=== PATIENT | male | born 1945 | race Hispanic/Latino ===

== ENCOUNTER 2018-01-13 15:39 | Inpatient (IN) | payer MEDICAID, SELFPAY ==
--- NOTE | 2018-01-13 16:19 | RAD ---
RADIOGRAPH CHEST 1 VIEW: Date: 01/13/18 Time: 3:55 p.m. HISTORY: 72-year-old male with chest pain. COMPARISON: None available. FINDINGS: There is hyperinflation consistent with COPD. There are diffuse, mild nodular interstitial densities, left greater than right. No consolidation or cardiomegaly. No effacement of lateral costophrenic ang les or pneumothorax. IMPRESSION: 1. Emphysema. 2. Nonspecific diffuse nodular interstitial densities. NAE [] POS: [facility]
[2018-01-13 16:25] LABS: #Eosinphils 0.2 thou/uL (0.0-0.7); #Lymphocytes 1.4 thou/uL (1.20-3.40); #Monocytes 0.3 thou/uL (0.11-0.59); #Neutrophils 6.8 thou/uL (1.40-6.50); %Eosinophils 2.7 % (0.0-10.0); %Lymphocytes 16.1 % (21.0-51.0); %Monocytes 3.6 % (0.0-10.0); %Neutrophils 77.7 % (42.0-75.0); Hemoglobin 8.1 g/dL (14.0-18.0); Mean Corpuscular HGB CONC 31.2 g/dL (32.0-36.0); Mean Corpuscular Volume 89.8 fL (78.0-98.0); Mean Platelet Volume 7.5 fL (7.4-10.4); Platelet Count 234 thou/uL (130-400); RBC Distribution Width 13.5 % (11.5-14.5); Red Blood Cell (RBC) Count 2.88 mill/uL (4.70-6.10); White Blood Cell (WBC) Count 8.8 thou/uL (4.8-10.8)
[2018-01-13] MEDS ORDERED: Morphine 2 MG/ML SYRINGE ONE (16:43)
[2018-01-13 16:44] LABS: ALT (SGPT) Less than 7 U/L (8-55); AST (SGOT) 12 U/L (5-34); Albumin 2.7 g/dL (3.4-4.8); Alkaline Phosphatase 82 U/L (40-150); Anion Gap 11 mmol/L (10-20); BUN (Urea Nitrogen) 45 mg/dL (8.4-25.7); Bilirubin, Total 0.2 mg/dL (0.2-1.2); Calc. Creatinine Clearance 0 mL/min (70-130); Calcium 8.3 mg/dL (7.8-10.44); Carbon Dioxide 15 mmol/L (23-31); Chloride 116 mmol/L (98-107); Estimated GFR-MDRD 25; Globulin 3.8 g/dL (2.4-3.5); Glucose 94 mg/dL (83-110); Magnesium 1.7 mg/dL (1.6-2.6); Potassium 5.3 mmol/L (3.5-5.1); Protein, Total 6.5 g/dL (5.8-8.1); Sodium 137 mmol/L (136-145)
[2018-01-13 16:49] LABS: Troponin I Less than 0.010 ng/mL (< 0.028)
[2018-01-13 17:05] LABS: Bilirubin Negative (Negative); Blood, Urine Large (Negative); Clarity CLEAR (Clear); Glucose, Urine (Dipstick) Negative (Negative); Leukocyte Negative (Negative); Nitrite Negative (Negative); Protein, Urine (Dipstick) 30 mg/dL (Neg-Trace); Specific Gravity, Urine 1.008 (1.002-1.036); Urobilinogen 0.2 mg/dL (0.2-1.0); pH, Urine 5.5 (5.0-9.0)
[2018-01-13 17:08] LABS: Bacteria/HPF None Seen HPF (None Seen); Hyaline Casts/LPF 0-3 HYALINE CAST LPF (0-3 Hyaline); RBC/HPF GREATER THAN 50-TNTC HPF (0-3); Squamous Epithelial None Seen HPF (0-3); WBC/HPF 0-3 HPF (0-3)
--- NOTE | 2018-01-13 20:14 | PDOC.FPRHP ---
- History of Present Illness Chief Complaint: LE swelling History of Present Illness: Mr. Pike came in to clinic 3 days ago with the complaint of one week of bilateral LE swelling, he reported intermittent chest pain, recent weight loss. Denied shortness of breath, palpitations, orthopnea, weakness or syncopal episodes. He presents to the ED tonight after an increase in duration of a chest pain episode, and reports from our clinic of abnormal lab values. He is a recent who move from [place] 1 week ago to be closer to family. All medical history reported is vague d/t pt/family understanding and language barrier. ED Course: UA, CXR, CKMB/trop, BNP, Mag, CMP/CBC, - Allergies/Adverse Reactions Allergies Allergy/AdvReac Type Severity Reaction Status Date / Time No Known Drug Allergies Allergy Verified 01/13/18 21:45 - Home Medications Medication Instructions Recorded Confirmed Type Diclofenac Sodium [Diclofenac 100 mg PO DAILY 01/13/18 01/13/18 History Sodium ER] Folic Acid 5 mg PO DAILY 01/13/18 01/13/18 History predniSONE [Prednisone] 5 mg PO DAILY 01/13/18 01/13/18 History - History PMHx:possible hx of CKD, DMII, OA, BPH PSHx: prostate surgery FHx: unknown Social: current smoker - Review of Systems General: reports: weight/appetite/sleep changes (recent weight loss), fatigue Eyes: denies: eye pain, vision changes ENT: denies: nasal congestion, rhinorrhea Respiratory: reports: cough, shortness of breath Cardiovascular: reports: chest pain, palpitation, edema. denies: paroxysmal nocturnal dyspnea, orthopnea Gastrointestinal: denies: nausea, vomiting, diarrhea Genitourinary: reports: polyuria. denies: incontinence Skin: denies: rashes, lesions Musculoskeletal: reports: pain. denies: stiffness, swelling Neurological: denies: numbness, syncope, weakness Psychological: reports: depression - Vital signs BP: [135/78] HR: [71] RR: [20] Tmax: [98.4] Pox: [100]% on [RA] Wt: [53.5kg] - Physical Exam Constitutional: NAD, other (somnolent) HEENT: normocephalic and atraumatic, grossly normal vision, grossly normal hearing, MMM Neck: supple, trachea midline, no bruits Chest: no-tender to palpation, no lesions Heart: RRR, normal S1/S2, pulses present, other (b/l LE edema extending to malleoli, S3 gallop) Lungs: CTAB, no wheezing Abdomen: soft, non-tender Musculoskeletal: normal structure, normal tone Neurological: no focal deficit Skin: no rash/lesions Heme/Lymphatic: no unusual bruising or bleeding, no petechia Psychiatric: normal mood and affect FMR H&P: Results - Labs Result Diagrams: 01/14/18 03:46 01/14/18 03:46 Lab results: WBC 8.8 thou/uL (4.8-10.8) 01/13/18 16:09 Hgb 8.1 g/dL (14.0-18.0) L 01/13/18 16:09 Hct 25.9 % (42.0-52.0) L 01/13/18 16:09 MCV 89.8 fL (78.0-98.0) 01/13/18 16:09 Plt Count 234 thou/uL (130-400) 01/13/18 16:09 Neutrophils % 77.7 % (42.0-75.0) H 01/13/18 16:09 Sodium 137 mmol/L (136-145) 01/13/18 16:09 Potassium 5.3 mmol/L (3.5-5.1) H 01/13/18 16:09 Chloride 116 mmol/L (98-107) H 01/13/18 16:09 Carbon Dioxide 15 mmol/L (23-31) L 01/13/18 16:09 BUN 45 mg/dL (8.4-25.7) H 01/13/18 16:09 Creatinine 2.56 mg/dL (0.6-1.3) H 01/13/18 16:09 Glucose 94 mg/dL (83-110) 01/13/18 16:09 Calcium 8.3 mg/dL (7.8-10.44) 01/13/18 16:09 Total Bilirubin 0.2 mg/dL (0.2-1.2) 01/13/18 16:09 AST 12 U/L (5-34) 01/13/18 16:09 ALT Less than 7 U/L (8-55) L 01/13/18 16:09 Alkaline Phosphatase 82 U/L (40-150) 01/13/18 16:09 CK-MB (CK-2) 1.0 ng/mL (0-6.6) 01/13/18 16:09 B-Natriuretic Peptide 368.9 pg/mL (0-100) H 01/13/18 16:09 Serum Total Protein 6.5 g/dL (5.8-8.1) 01/13/18 16:09 Albumin 2.7 g/dL (3.4-4.8) L 01/13/18 16:09 Urine Ketones Negative mg/dL (Negative) 01/13/18 16:57 Urine Blood Large (Negative) H 01/13/18 16:57 Urine Nitrite Negative (Negative) 01/13/18 16:57 Ur Leukocyte Esterase Negative (Negative) 01/13/18 16:57 Urine RBC GREATER THAN 50-TNTC HPF (0-3) H 01/13/18 16:57 Urine WBC 0-3 HPF (0-3) 01/13/18 16:57 Ur Squamous Epith Cells None Seen HPF (0-3) 01/13/18 16:57 Urine Bacteria None Seen HPF (None Seen) 01/13/18 16:57 FMR H&P: A/P - Problem List (1) Elevated brain natriuretic peptide (BNP) level Current Visit: Yes Status: Acute Code(s): R79.89 - OTHER SPECIFIED ABNORMAL FINDINGS OF BLOOD CHEMISTRY (2) Hematuria Current Visit: Yes Status: Acute Code(s): R31.9 - HEMATURIA, UNSPECIFIED (3) Kidney disease Current Visit: Yes Status: Acute Code(s): N28.9 - DISORDER OF KIDNEY AND URETER, UNSPECIFIED (4) Hyperkalemia Current Visit: Yes Status: Acute Code(s): E87.5 - HYPERKALEMIA (5) Anemia Current Visit: Yes Status: Acute Code(s): D64.9 - ANEMIA, UNSPECIFIED (6) Tobacco abuse Current Visit: Yes Status: Acute Code(s): Z72.0 - TOBACCO USE - Plan 1. Elevated BNP - over 1700 reported by lab, 368 in ED. Suspect CHF - TTE in AM - cardiology consulted from ED, consult HF team pending results - strict I&Os - caution IVF at this time - daily ASA 2. Kidney disease - Chronic vs acute, unknown cause - obtain FENa - nephrology consulted in ED - renal US 3. Hematuria - kidney vs prostate source - evaluate kidney disease - cytology 4. Hyperkalemia - 5.3 in ED - Kayexalate given - repeat CMP in AM 5. Anemia - most likely 2/2 CKD - obtain RBC smear 6. Tobacco abuse - COPD as possible cause for cough/SOB - Emphesyma per CXR Disposition/LOS: evaluate for CHF and CKD, monitor on telemetry. FMR H&P: Upper Level - Pertinent history 72M patient seen 3 days prior with complaint of leg swelling. Was noted to have elevated BNP. He presents to ED today due to gross abnormalities seen on clinic lab, primarily increased BNP, but also kidney injuries and hyperkalemia.=. Here , he endorses having episodes of chest pain, though none at this time. - Pertinent findings Gen: Alert, oriented, uses family for translation ResP: Appear CTA bilaterally CV: No obvious m/g/r. RRR GI: Normoactive, no distension. Ext: Trace pitting edema in LE - Plan Date/Time: 01/13/182010 I, [Franco Rehman], have evaluated this patient and agree with findings/plan as outlined by safety intern resident. Pertinent changes/additions are listed here. 1. Suspected CHF - Elevated BNP with occasional episode of SOB - TTE echo order. Cardiology consulted by ED. Strict I/O. 2. CKD vs TOYIN - Nephrology consulted from ED - Obtain FENA as patient has hx of possible obstructive disease and poor hydration 3. Hematuria - - Has hx of prostate surgery, unclear if malignancy found - Will likely need repeat UA to in futuer 4. Hyperkalemia - 5.3 in ED, recheck in morning - Kayexalate given 5. Normocytic Anemia - Consider iron studies, folate, B12 6. Tobacco abuse - Advise cessation Attending Addendum - Attending Addendum Date/Time: 01/13/18 [id number] I personally evaluated the patient and discussed the management with Dr. Brito. I agree with the History, Examination, Assessment and Plan documented above with any addition or exceptions noted below. The patient presented to the ER due to elevated BNP as an outpt. He has had increased lower extremity edema and some shortness of breath. Pt was also found to have anemia and elevated creatinine. Will get echo to assess for heart failure. Get urine studies. Will hold off on fluids as he already has edema. Get renal ultrasounds.
[2018-01-13 21:06] LABS: Troponin I Less than 0.010 ng/mL (< 0.028)
[2018-01-13] MEDS ORDERED: Acetaminophen 325 MG TAB PO PRN (21:36)
[2018-01-13 21:48] VITALS: BMI 19.2
[2018-01-13] MEDS ORDERED: Furosemide 20 MG/2 ML VIAL SLOW IVP SCH (23:15)
[2018-01-13 23:27] LABS: Troponin I Less than 0.010 ng/mL (< 0.028)
[2018-01-13 23:29] LABS: Band 1 % (5-11); Eosinophils 3 % (0-10); Hemoglobin 8.1 g/dL (14.0-18.0); Lymphocytes 9 % (21-51); MDiff Complete? YES; Mean Corpuscular HGB CONC 31.5 g/dL (32.0-36.0); Mean Corpuscular Volume 88.8 fL (78.0-98.0); Monocytes 4 % (0-10); Neutrophil 83 % (42-75); PLT Morphology Comment Appears Adequate; Platelet Count 213 thou/uL (130-400); RBC Distribution Width 13.3 % (11.5-14.5); Red Blood Cell (RBC) Count 2.88 mill/uL (4.70-6.10); White Blood Cell (WBC) Count 8.2 thou/uL (4.8-10.8)
[2018-01-13] MEDS: Sodium Bicarbonate 150 MEQ in Dextrose 5% in Water 1,000 ML IV SCH (23:34)
[2018-01-14 04:38] LABS: #Eosinphils 0.2 thou/uL (0.0-0.7); #Monocytes 0.2 thou/uL (0.11-0.59); #Neutrophils 7.2 thou/uL (1.40-6.50); %Basophils 0.1 % (0.0-1.0); %Eosinophils 1.9 % (0.0-10.0); %Lymphocytes 11.7 % (21.0-51.0); %Monocytes 2.9 % (0.0-10.0); %Neutrophils 83.4 % (42.0-75.0); Hemoglobin 8.4 g/dL (14.0-18.0); Mean Corpuscular HGB CONC 32.9 g/dL (32.0-36.0); Mean Corpuscular Hemoglobin 29.2 pg (27.0-31.0); Mean Corpuscular Volume 88.8 fL (78.0-98.0); Mean Platelet Volume 7.4 fL (7.4-10.4); Platelet Count 235 thou/uL (130-400); RBC Distribution Width 13.4 % (11.5-14.5); Red Blood Cell (RBC) Count 2.89 mill/uL (4.70-6.10); White Blood Cell (WBC) Count 8.6 thou/uL (4.8-10.8)
--- NOTE | 2018-01-14 04:44 | CON ---
DATE OF CONSULTATION: 01/13/2018 NEPHROLOGY CONSULTATION REASON FOR CONSULTATION: Elevated creatinine. HISTORY OF PRESENT ILLNESS: This is a very pleasant 72-year-old gentleman, who presented to the [facility] room after he noted lower extremity swelling, elevated creatinine and dyspnea on minimal exerti on. The patient denies headache, numbness, tingling or weakness. Denies any nausea, vomiting, or ch est pain. PAST MEDICAL HISTORY: Significant for diabetes mellitus, osteoarthritis, hypertension, prostate surg stephane. FAMILY HISTORY: Negative for ESRD. SOCIAL ECONOMIC HISTORY: No alcohol or drug use. REVIEW OF SYSTEMS: Fifteen-point review of systems was performed and was negative except for the pos itives noted above. General: Weakness. Head: Headache. Neck: No swelling or lumps. Nose: No e pistaxis or discharge. Eyes: No diplopia or pain. Respiratory: Dyspnea. Cardiovascular: Chest p ain. Gastrointestinal: Nausea. /HEALTH SAFETY MANAGER: Hematuria. Musculoskeletal: No joint pain. Neuropsychia tric systems: No suicidal ideation. No ideation. Skin: Denies any rash or ulcer. Constitutional: No fever or chills. PHYSICAL EXAMINATION: GENERAL: The patient is awake and alert. VITAL SIGNS: Afebrile, pulse 73, breathing at 16, blood pressure 146/68. GENERAL APPEARANCE AND MENTAL STATUS: Fair. HEAD/NECK: Normocephalic. Atraumatic. EYES: EOMI. No deformity. EARS: Clear. No ulcers. NOSE: Intact. No lesions. MOUTH: Clear. No discharge. THROAT: Clear. No exudate. LUNGS: Clear. No crackles. CARDIAC: S1, S2. No rub. ABDOMEN: Benign. BS+. GENITALIA/RECTUM: Cordova absent. BACK/EXTREMITIES: Edema 0+ Ulcer-. NEUROLOGICAL: Alert and motor intact. SKIN: Rash- Bruise-. LYMPHATICS: Edema- Ulcer-. LABORATORY DATA: Show hemoglobin 8.1. Creatinine 2.5, bicarbonate 15. ASSESSMENT AND RECOMMENDATIONS: 1. Acute kidney injury with chronic kidney disease, most likely due to cardiorenal syndrome in the s etting of abnormal chest x-ray. We will start the patient on a bicarbonate drip and start IV Lasix. 2. Hypertension. Plan diuresis. 3. Congestive heart failure. 4. Anemia, stable. I would recommend transfusion if indicated and checking iron studies. I would a lso recommend getting a renal ultrasound.
[2018-01-14 04:56] LABS: ALT (SGPT) Less than 7 U/L (8-55); AST (SGOT) 13 U/L (5-34); Albumin 2.7 g/dL (3.4-4.8); Alkaline Phosphatase 77 U/L (40-150); Anion Gap 13 mmol/L (10-20); BUN (Urea Nitrogen) 41 mg/dL (8.4-25.7); Bilirubin, Total 0.2 mg/dL (0.2-1.2); Calc. Creatinine Clearance 21 mL/min (70-130); Calcium 8.5 mg/dL (7.8-10.44); Carbon Dioxide 19 mmol/L (23-31); Chloride 113 mmol/L (98-107); Estimated GFR-MDRD 26; Globulin 3.9 g/dL (2.4-3.5); Glucose 95 mg/dL (83-110); Potassium 5.1 mmol/L (3.5-5.1); Protein, Total 6.6 g/dL (5.8-8.1); Sodium 140 mmol/L (136-145)
--- NOTE | 2018-01-14 05:37 | PDOC.FM ---
- Subjective Subjective: Patient complains of a cough this morning. Denies SOB or difficulty breathing. Denies CP today. Notes weight loss. Has no other complaints. Requests medication for cough. - Objective MAR Reviewed: Yes Vital Signs & Weight: Vital Signs (12 hours) Temp Pulse Resp BP Pulse Ox 01/14/18 03:55 99.1 F 71 15 130/66 98 01/13/18 23:12 99.1 F 79 15 127/64 99 01/13/18 21:15 98.6 F 73 22 H 146/68 H 99 Weight Weight 53.977 kg Result Diagrams: 01/14/18 03:46 01/14/18 03:46 <Rochelle Phelan - Last Filed: 01/14/18 09:19> - Objective Vital Signs & Weight: Vital Signs (12 hours) Temp Pulse Resp BP Pulse Ox 01/14/18 16:00 78 24 H 137/68 01/14/18 12:25 98.8 F 76 18 127/58 L 96 01/14/18 10:10 98.6 F 74 16 140/67 98 01/14/18 08:55 98 01/14/18 07:13 99 F 71 16 129/63 98 Weight Weight 50.712 kg I&O: 01/13/18 01/14/18 01/15/18 06:59 06:59 06:59 Intake Total 481 726 Output Total 1300 370 Balance -819 356 Result Diagrams: 01/14/18 03:46 01/14/18 03:46 <Jocelyne Brewer - Last Filed: 01/14/18 16:32> Phys Exam - Physical Examination Constitutional: NAD (thin) HEENT: PERRLA Respiratory: no wheezing, no rhonchi, clear to auscultation bilateral Cardiovascular: RRR Gastrointestinal: soft, non-tender, no distention, positive bowel sounds Musculoskeletal: no edema, pulses present Neurological: non-focal, moves all 4 limbs Psychiatric: normal affect Skin: no rash, normal turgor, cap refill <2 seconds <Rochelle Phelan - Last Filed: 01/14/18 09:19> Dx/Plan (1) Cough Code(s): R05 - COUGH Status: Acute (2) Anemia Code(s): D64.9 - ANEMIA, UNSPECIFIED Status: Acute (3) Elevated brain natriuretic peptide (BNP) level Code(s): R79.89 - OTHER SPECIFIED ABNORMAL FINDINGS OF BLOOD CHEMISTRY Status : Acute (4) Hematuria Code(s): R31.9 - HEMATURIA, UNSPECIFIED Status: Acute (5) Hyperkalemia Code(s): E87.5 - HYPERKALEMIA Status: Acute (6) Kidney disease Code(s): N28.9 - DISORDER OF KIDNEY AND URETER, UNSPECIFIED Status: Acute (7) Tobacco abuse Code(s): Z72.0 - TOBACCO USE Status: Acute - Plan Plan: 72 yo M presenting with b/l leg swelling with possible new onset CHF, and getting work up for other cough, hematuria. Elevated BNP - BNP 1700 in outpatient setting, 368 in ED - complained of CP, trop neg x3 - ECHO pending - cardiology consulted from ED, appreciate recommendations - s/p Lasix IV 20. Lungs CTA with no peripheral edema. Will not continue diuresis at this time. - strict I&Os - caution IVF at this time - daily ASA Cough with CXR findings - no respiratory distress or supplemental O2 requirements - considering weight loss, cough, recent move from [place], TB considered. Quant gold pending. - CXR shows emphysema, diffuse nodular interstitial disease - consider Chest CT for further evaluation - tessalon prn TOYIN vs CKD - unknown cause, no hx of kidney disease - Cr 2.47 today - obtain FENa - nephrology, Dr. Pack, consulted. appreciate recommendations Hematuria - kidney vs prostate source - nephrology recommendations - renal US pending Hyperkalemia, improving - 5.3 on admission, Kayexalate given - 5.1 this am - follow on BMP Normocytic Anemia - Hgb 8.4 today - possibly 2/2 CKD, completing studies for other etiologies - pending smear, iron studies, stool occult Tobacco abuse - COPD as possible cause for cough/SOB - Emphesyma per CXR Dispo: pending workup <Rochelle Phelan - Last Filed: 01/14/18 09:19> (1) Elevated brain natriuretic peptide (BNP) level Code(s): R79.89 - OTHER SPECIFIED ABNORMAL FINDINGS OF BLOOD CHEMISTRY Status : Acute (2) Hematuria Code(s): R31.9 - HEMATURIA, UNSPECIFIED Status: Acute (3) Kidney disease Code(s): N28.9 - DISORDER OF KIDNEY AND URETER, UNSPECIFIED Status: Acute (4) Hyperkalemia Code(s): E87.5 - HYPERKALEMIA Status: Acute (5) Anemia Code(s): D64.9 - ANEMIA, UNSPECIFIED Status: Acute (6) Tobacco abuse Code(s): Z72.0 - TOBACCO USE Status: Acute <Jocelyne Brewer - Last Filed: 01/14/18 16:32> Attending Addendum - Attending Addendum Date/Time: 01/14/18 54 I personally evaluated the patient and discussed the management with Dr. Phelan. I agree with the History, Examination, Assessment and Plan documented above with any addition or exceptions noted below. Pt's lower extremity edema is improved. He is complaining of cough and notes the cough has been chronic. He also notes weight loss in last several months and recently came here from [place] after his . Echo and renal ultrasound pending. Creatinine is slightly improved. Still having some chest pain. Appreciate nephrology recs. Cardiology is being consulted. Iron studies pending. Checking stool guiac. <Jocelyne Brewer - Last Filed: 01/14/18 16:32>
[2018-01-14 06:10] LABS: Iron 15 ug/dL (65-175); Iron Binding Capacity, Total 206 mcg/dL (261-462)
[2018-01-14 06:24] LABS: Creatinine, Urine 21.1 mg/dL (63-166)
[2018-01-14] MEDS ORDERED: Benzonatate 100 MG CAP PO PRN (07:45)
--- NOTE | 2018-01-14 08:50 | ULT ---
BILATERAL RENAL ULTRASOUND: Date: 01/14/18 HISTORY: Acute renal insufficiency. FINDINGS: The right kidney measures 9.0 cm in length and the left kidney measures 8.0 cm in length. No focal ma ss or hydronephrosis is seen. The urinary bladder is unremarkable. IMPRESSION: No evidence of high grade obstruction. POS: [facility]
[2018-01-14] MEDS ORDERED: Prevnar 13-Val Conj/PF 0.5 ML SYRINGE IM ONE (09:00)
[2018-01-14] MEDS: Enoxaparin Sodium 30 MG/0.3 ML SYRINGE SC SCH (09:49)
--- NOTE | 2018-01-14 11:14 | PRG ---
DATE OF SERVICE: 01/14/2018 SUBJECTIVE: This is a 72-year-old gentleman, being seen for acute kidney injury. The patient denies any nausea, vomiting, or chest pain. OBJECTIVE: See above. GENERAL: Awake, alert. VITAL SIGNS: Afebrile, pulse , breathing at 16, blood pressure . GENERAL APPEARANCE AND MENTAL STATUS: Fair. HEAD/NECK: Normocephalic. Atraumatic. EYES: EOMI. No deformity. EARS: Clear. No ulcers. NOSE: Intact. No lesions. MOUTH: Clear. No discharge. THROAT: Clear. No exudate. LUNGS: Clear. No crackles. CARDIAC: S1, S2. No rub. ABDOMEN: Benign. BS+. GENITALIA/RECTUM: Cordova absent. BACK/EXTREMITIES: Edema 0+, ulcer. NEUROLOGICAL: Alert and motor intact. SKIN: Rash - bruise. LYMPHATICS: Edema - ulcer. LABORATORY DATA: Labs show hemoglobin 8.4, creatinine 2.4. ASSESSMENT: 1. Chronic kidney disease, stage 4, stable. 2. Metabolic acidosis, improved. 3. Hyperkalemia, improved. 4. Congestive heart failure. Continue Lasix aggressively. Patient will need a repeat chest x-ray.
[2018-01-14] MEDS: Sodium Bicarbonate 150 MEQ in Dextrose 5% in Water 1,000 ML IV SCH (13:06)
--- NOTE | 2018-01-14 14:50 | RAD ---
PA AND LATERAL VIEWS OF CHEST: Date: 01/14/18 HISTORY: Cough. FINDINGS: Comparison made with exam from previous day. The heart size is normal. The aorta is tortuous. The lungs are well expanded. Interval worsening of b ilateral infiltrates are seen since the previous day's exam. Nodular interstitial infiltrates seen si nce the previous exam. No lobar consolidation, pneumothoraces, or large effusions are seen. IMPRESSION: Interval worsening since yesterday. POS: [facility]
--- NOTE | 2018-01-14 15:00 | CON ---
DATE OF CONSULTATION: 01/14/2018 REASON FOR CONSULTATION: Heart failure. HISTORY OF PRESENT ILLNESS: Mr. Shahzad Galarza is a very pleasant 72-year-old gentleman w agnieszka comes to the hospital for shortness of breath and chest pain. He states that he has been having i n the last few days, severe chest tightness with increased shortness of breath. So he was brought in for further evaluation. He recently moved from [place] about a week ago. He has a history of rheuma toid arthritis and had been on prednisone for at least the last 2 years daily. He stopped taking all his medications a week ago when he came here. He does have the medications here with him, but he ju st stopped taking them. He has noted that since then he has felt very weak and tired. Currently, he is pain free. He was diagnosed with heart failure when he came in and was given IV Lasix. He took some of the fluid out. His ankles which were swollen are no longer swollen, but he feels that he robert athing a lot better. He also had acute kidney injury and his kidney function improved slightly with IV diuresis. PAST MEDICAL HISTORY: 1. Rheumatoid arthritis. 2. Hypertension, this is per chart review. 3. Type 2 diabetes. PAST SURGICAL HISTORY: Prostate surgery. FAMILY HISTORY: Noncontributory. SOCIAL HISTORY: He smokes about 4 cigarettes a day. No alcohol or drug use. OUTPATIENT MEDICATIONS: Include, 1. Prednisone 5 mg a day 2. Diclofenac 75 mg b.i.d. p.r.n. 3. Folic acid daily. 4. Citracal daily. ALLERGIES: No known drug allergies. REVIEW OF SYSTEMS: A 12-point review of systems is done and it is all negative except as stated per HPI. PHYSICAL EXAMINATION: VITAL SIGNS: Temperature 99.0, pulse 71, respiration rate 16, satting 98% on room air, blood pressur e 129/63. GENERAL: Awake, alert, oriented x3, in no distress. HEENT: Normocephalic, atraumatic. NECK: Supple. LUNGS: Clear. CARDIOVASCULAR: S1, S2. No S3, S4, no murmurs. ABDOMEN: Soft. Positive bowel sounds. EXTREMITIES: No edema. SKIN: Warm and dry. LABORATORY DATA: Reviewed. CBC; anemic with hemoglobin of 8.4, hematocrit 25, platelet count 235, n ormal white count. Chemistries with BUN of 41, creatinine 2.4 down from 2.5. Troponin has been nega tive x3. BNP was 368, albumin of 2.7, potassium was 5.3 on admission down to 5.1. IMAGING DATA: Echocardiogram was reviewed. He has a normal LV function and actually normal diastoli c function with mildly upper limits of normal right ventricular systolic pressure of 38. This may be under estimated. Renal ultrasound shows smaller than normal kidneys suggestive of chronic kidney disease. Chest x-ray was reviewed. It shows a reticular nodular pattern suggestive of COPD and emphysema ASSESSMENT AND PLAN: 1. Shortness of breath: Certainly could be a little volume overload. I think this may be related t o some level of chronic obstructive pulmonary disease given his tobacco use and his chest x-ray which looks like chronic obstructive pulmonary disease as well. I will just give this one more dose of La six today and hold for now. He already feels better. His edema was really not that significant. 2. Acute kidney injury and chronic kidney disease: Not a candidate for a heart catheterization give n his elevated creatinine at this time. 3. Chest pain: Certainly could be anginal in nature given his history of tobacco use. Family does not provide a history of diabetes or hypertension, and he is not on these medications and here in the hospital not being on any medications, his blood pressure and his sugars are actually pretty well co ntrolled. I do not think he has hypertension or diabetes. We will get a stress test to evaluate I expect this to be normal. 4. Anemia: Fair and this actually normal, which would be consistent with anemia of chronic disease with a low iron. May be related to his chronic kidney disease versus rheumatoid arthritis. 5. Rheumatoid arthritis: He had been off of his prednisone for the last week. He may have some lev el of adrenal insufficiency. I would restart his prednisone. Thank you for letting us to participate in the care of your patient. We will follow.
[2018-01-15 04:26] LABS: #Eosinphils 0.1 thou/uL (0.0-0.7); #Lymphocytes 1.2 thou/uL (1.20-3.40); #Monocytes 0.4 thou/uL (0.11-0.59); #Neutrophils 5.7 thou/uL (1.40-6.50); %Basophils 0.3 % (0.0-1.0); %Eosinophils 1.9 % (0.0-10.0); %Lymphocytes 16.6 % (21.0-51.0); %Monocytes 4.8 % (0.0-10.0); %Neutrophils 76.5 % (42.0-75.0); Hemoglobin 7.8 g/dL (14.0-18.0); Mean Corpuscular HGB CONC 32.1 g/dL (32.0-36.0); Mean Corpuscular Hemoglobin 28.2 pg (27.0-31.0); Mean Corpuscular Volume 87.9 fL (78.0-98.0); Mean Platelet Volume 7.5 fL (7.4-10.4); Platelet Count 198 thou/uL (130-400); RBC Distribution Width 12.9 % (11.5-14.5); Red Blood Cell (RBC) Count 2.74 mill/uL (4.70-6.10); White Blood Cell (WBC) Count 7.4 thou/uL (4.8-10.8)
[2018-01-15 04:42] LABS: Anion Gap 11 mmol/L (10-20); BUN (Urea Nitrogen) 37 mg/dL (8.4-25.7); Calc. Creatinine Clearance 21 mL/min (70-130); Calcium 8.1 mg/dL (7.8-10.44); Carbon Dioxide 26 mmol/L (23-31); Chloride 107 mmol/L (98-107); Estimated GFR-MDRD 28; Glucose 93 mg/dL (83-110); Potassium 3.9 mmol/L (3.5-5.1); Sodium 140 mmol/L (136-145)
--- NOTE | 2018-01-15 05:19 | PDOC.FM ---
- Subjective Subjective: Feeling much better today, would like to know when he can go home. Denies SOB, LE edema, chest pain. No other questions or concerns. Reports he will be here for one more month before returning to [place]. - Objective MAR Reviewed: Yes Vital Signs & Weight: Vital Signs (12 hours) Temp Pulse Resp BP BP Pulse Ox 01/15/18 04:00 99.0 F 70 16 117/54 L 93 L 01/15/18 00:00 98.8 F 96 01/14/18 21:36 100.7 F H 74 18 125/57 L 97 01/14/18 21:05 97 Weight Weight 50.712 kg I&O: 01/13/18 01/14/18 01/15/18 06:59 06:59 06:59 Intake Total 481 726 Output Total 1300 370 Balance -819 356 Result Diagrams: 01/15/18 04:12 01/15/18 04:12 Phys Exam - Physical Examination Constitutional: NAD Respiratory: no wheezing, clear to auscultation bilateral Cardiovascular: RRR, no significant murmur Gastrointestinal: soft, non-tender, positive bowel sounds Musculoskeletal: no edema Psychiatric: normal affect, A&O x 3 Dx/Plan (1) Anemia of chronic disease Code(s): D63.8 - ANEMIA IN OTHER CHRONIC DISEASES CLASSIFIED ELSEWHERE Status : Acute (2) COPD (chronic obstructive pulmonary disease) Status: Acute (3) Rheumatoid arteritis Code(s): I00 - RHEUMATIC FEVER WITHOUT HEART INVOLVEMENT Status: Acute (4) Cough Code(s): R05 - COUGH Status: Acute (5) Elevated brain natriuretic peptide (BNP) level Code(s): R79.89 - OTHER SPECIFIED ABNORMAL FINDINGS OF BLOOD CHEMISTRY Status : Acute (6) Hematuria Code(s): R31.9 - HEMATURIA, UNSPECIFIED Status: Acute (7) Hyperkalemia Code(s): E87.5 - HYPERKALEMIA Status: Acute (8) Kidney disease Code(s): N28.9 - DISORDER OF KIDNEY AND URETER, UNSPECIFIED Status: Acute (9) Tobacco abuse Code(s): Z72.0 - TOBACCO USE Status: Acute - Plan Plan: 72 yo M presenting with b/l leg swelling with possible new onset CHF, and getting work up for other cough, hematuria. Elevated BNP - BNP 1700 in outpatient setting, 368 in ED - Echo: 60-65% nml diastolic dysfunction - Cardiology consulted, appreciate recs - s/p Lasix IV 20. SOB and edema improved. - Strict I&Os, daily wts - Repeat CXR with worsening interstitial infiltrates - Will obtain ABG, pt with longstanding smoking hx and edema suspicious for cor pulmonale Atypical Chest Pain - Trops neg x3 - EKG with no ST segment changes - Cardiology Consulted - Not a candidate for heart cath due to elevated Cr - NPO for Stress test today - Daily ASA Cough, resolved - No respiratory distress or supplemental O2 requirements - Considering weight loss, cough, recent move from [place], TB considered. Quant gold pending. - CXR shows emphysema, diffuse nodular interstitial disease - Tessalon prn Elevated Creatinine - No reported hx of kidney disease - Likely chronic - Cr 2.29 today - FeNa: 0.3% - US: smaller than nml kidney size - Nephrology consulted, appreciate recommendations - Will stop diuresis, edema improved - Will need to follow up with PCP outpt Hematuria - Kidney vs prostate source - Nephrology consulted Emphesyma on CXR - likely 2/2 tobacco abuse - CXR- hyperinflation c/w COPD. diffuse, mild nodular interstitial densities L> R. RA - Previously on Prednisone 5mg daily - Stopped taking a week ago when moved from [place] - Will resume Prednisone 5mg qd Anemia of Chronic Disease - Iron studies c/w Anemia of Chronic disease - 2/2 CKD vs RA - Hgb 8.4-> 7.8 - FOBT neg - Pending smear Hyperkalemia, resolved - 5.3 on admission, Kayexalate given - Continue to monitor daily BMP Tobacco abuse - COPD as possible cause for cough/SOB - Emphesyma per CXR - Encourage cessation Code Status: FULL DVT ppx: Lovenox
[2018-01-15] MEDS: Sodium Bicarbonate 150 MEQ in Dextrose 5% in Water 1,000 ML IV SCH ×2 (06:11→07:35)
[2018-01-15] MEDS: Enoxaparin Sodium 30 MG/0.3 ML SYRINGE SC SCH (08:46)
[2018-01-15] MEDS: Folic Acid 1 MG TAB PO SCH (08:46)
[2018-01-15] MEDS: predniSONE 5 MG TAB PO SCH (08:46)
--- NOTE | 2018-01-15 12:04 | PRG ---
DATE OF SERVICE: 01/15/2018 Mr. Pike looks and feels much better this morning; in fact, he is anxious to go home. His edema has resolved. His metabolic acidosis, secondary to his chronic kidney disease, has resolved. He had been scheduled for a stress Myoview, but Cardiology has canceled this. We will discuss with them wh at further plans they have if any for Mr. Pike. We also need to find out from Nephrology how to follow his intermittent chronic metabolic acidosis due to his chronic kidney disease. It was likely caused and/or exacerbated by his acute kidney injury on top of chronic kidney disease. In the event, it has resolved now and his bicarbonate this morning is 26. He also has significant COPD and I woul d suggest an ABG to check him for hypoxemia. If his pO2 is less than 60, he would be a candidate for 24-hour O2. He will also need various inhalers for his COPD, but finances will be a problem.
--- NOTE | 2018-01-15 16:13 | PDOC.CTH ---
Cardiology Progress Note - Subjective He feels very well now. No new issues. - Objective Vital Signs Temp Pulse Resp BP Pulse Ox 01/15/18 16:00 98.4 F 65 14 116/60 94 L 01/15/18 12:00 98.9 F 66 18 142/68 H 97 01/15/18 08:00 98.8 F 63 16 140/70 96 01/15/18 07:50 97 Weight 110 lb 01/14/18 01/15/18 01/16/18 06:59 06:59 06:59 Intake Total 481 1551 300 Output Total 1300 370 Balance -819 1181 300 - Physical Examination General/Neuro: alert & oriented x3, NAD Neck: no JVD present Lungs: CTA, unlabored respirations Heart: RRR Abdomen: NT/ND Extremities: other: (no edema) - Telemetry Telemetry Rhythm: NSR - Labs Result Diagrams: 01/15/18 04:12 01/15/18 04:12 Troponin/CKMB CK-MB (CK-2) 1.0 ng/mL (0-6.6) 01/13/18 16:09 Troponin I Less than 0.010 ng/mL (< 0.028) 01/13/18 22:56 - Assessment/Plan 1. SOB 2. RA 3. Normal systolic and diastolic function. 4. TOYIN in CKD 5. Diffuse alveolar infiltrates on bilateral lungs suggestive of pulomary fibrosis or rheumatoid lung. Will consult Pulmonary. PLAN: - Hold lasix - CV stable. - Pending Tb results.
[2018-01-15 16:26] LABS: Actual Bicarbonate (HCO3a) 24.4 mEq/L (22-28); Analyzer IN Cardio OR; CO2 Tension 33.5 mmHg (35.0-45.0); Calcium, Ionized 1.09 mmol/L (1.12-1.30); Carboxyhemoglobin (COHb) 1.5 gm% (0.0-3.0); O2 Tension (PaO2) 79.9 mmHg (> 70.0); Potassium - ABG Lab 4.34 mmol/L (3.70-5.30); pH, Arterial 7.48 (7.35-7.45)
[2018-01-15 16:27] LABS: ALV-art Gradient 27.955 (0-20)
--- NOTE | 2018-01-15 17:12 | CT ---
HIGH RESOLUTION CHEST CT: Date: 01/15/18 HISTORY: Pulmonary fibrosis. Current smoker, 2-3 packs per day. New onset CHF. TECHNIQUE: Supine and prone high resolution chest CT is performed. FINDINGS: Extensive calcifications in the mediastinum and hilum due to granulomatous disease. There are hypoden se oval opacities involving the left and right upper lobe near the respective major fissures. There i s consolidation of the right suprahilar region. There is narrowing of the right mainstem bronchus and central right airway. There are diffuse nodules throughout the lung parenchyma. There is no evidence of honeycombing. There is nonspecific septal thickening. There is a small bilateral pleural effusion. There is an irregular marginated mass in the right lower lobe incompletely evaluated measuring 2.1 x 1.5 cm. Visualized upper solid organs are unremarkable. Questionable enlarged gastrohepatic lymph node measur ing 2.0 x 1.5 cm. There is evidence of bilateral apical pleural thickening with a more focal mass-like opacity in the l eft upper lobe measuring 1.6 x 1.4 cm. IMPRESSION: 1. Extensive opacities throughout the lung parenchyma, which are nonspecific and have a nodular appe arance. There is an irregular marginated mass in the right lower lobe worrisome for malignancy until proven otherwise. Dedicated postcontrast chest CT is recommended. 2. Narrowing of the right central and mainstem bronchus. POS: ROSALVA
--- NOTE | 2018-01-15 19:46 | PRG ---
DATE OF SERVICE: 01/15/2018 SUBJECTIVE: Patient was seen and examined at bedside and overnight events noted. Patient denies any shortness of breath or chest pain or palpitation. No history of nausea or vomiting or diarrhea or f ever or chills or cramps. OBJECTIVE: GENERAL: This is a well-built male in no apparent distress. VITAL SIGNS: Temperature 99, pulse 66, respiratory rate 18, blood pressure 142/68. HEENT: Atraumatic, normocephalic. Oral mucosa is moist. NECK: Supple CARDIOVASCULAR: S1, S2 heard. Rate and rhythm regular. RESPIRATORY: Clear to auscultation. GASTROINTESTINAL: Abdomen is soft. MUSCULOSKELETAL: No tenderness, no edema. DERMATOLOGIC: No skin rash. NEUROLOGIC: Alert, awake, and oriented x3. No focal neurologic deficits. Moving all the extremitie s. PSYCHIATRIC: Mood and affect normal. LABORATORY DATA: Potassium is 3.9, BUN is 37, creatinine is 2.2. ASSESSMENT AND PLAN: 1. Acute kidney injury on chronic kidney disease, stage 3. The patient is traveling and not able to give previous labs. Avoid nephrotoxins. We will hold Lasix at this time. 2. Edema, controlled. 3. Hyperkalemia, better. 4. Congestive heart failure, cardiorenal syndrome. 5. Metabolic acidosis, better. 6. Stop IV fluids and Lasix. Monitor. Avoid nephrotoxins. 7. Proteinuria. I will continue to monitor. 8. Anemia, most likely from chronic kidney disease. Continue iron supplementation.
--- NOTE | 2018-01-15 21:17 | CON ---
DATE OF CONSULTATION: 01/15/2018 CONSULTING PHYSICIAN: Iggy Rojo MD REASON FOR CONSULTATION: Possible interstitial lung disease. HISTORY OF PRESENT ILLNESS: The patient is a 72-year-old male from [place]. He has been in the count ry for about a week. He was apparently having shortness of breath with exertion and also some feet s welling, and was brought here for further evaluation for potential heart failure. I have spoken to t he patient's [id number] who speaks Hungarian and is acting as a bridge rigger. The patient has no history of pulmonary issues in the past. 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 He denies any exposure to asbestos. PAST MEDICAL HISTORY: 1. Rheumatoid arthritis. 2. Hypertension. 3. Type 2 diabetes mellitus. PAST SURGICAL HISTORY: Prostate surgery. FAMILY MEDICAL HISTORY: Unremarkable. SOCIAL HISTORY: He smokes 4 cigarettes per day. He does not consume alcohol, does not use illicit d rugs. MEDICATIONS PRIOR TO ADMISSION: Prednisone 5 mg daily, diclofenac 75 mg b.i.d., folate 1 mg daily, a nd Citracal daily. ALLERGIES: None. REVIEW OF SYSTEMS: Twelve-point review of systems is otherwise negative. PHYSICAL EXAMINATION: VITAL SIGNS: Temperature 98.9, pulse 66, respirations 18, O2 sat 97% on room air, blood pressure 142 /68. GENERAL: He is awake, alert, and in no distress. He stands 5 feet 6 inches, weighs 110 pounds, BMI 17.8. HEENT: Pupils react. Sclerae anicteric. Oropharynx clear. NECK: No adenopathy, no JVD. LUNGS: He has a few inspiratory crackles in the left base, otherwise is clear bilaterally. CARDIAC: S1, S2 regular without murmur. ABDOMEN: Soft, nontender, nondistended. EXTREMITIES: No clubbing, cyanosis, or edema. LABORATORY DATA: White blood cell count 7.4, hemoglobin 7.8, hematocrit 24.1, platelet count 198 wit h no left shift. Sodium 140, potassium 3.9, chloride 107, CO2 of 26, BUN 37, creatinine 2.3, glucose 93. BNP level was 368. Albumin 2.7. Urinalysis showed greater than 50 red blood cells per high-po wer field. There was some mild proteinuria and some blood present. His chest x-ray shows interstitial infiltrates bilaterally. CT has yet to be done. Echocardiogram s howed no evidence of systolic dysfunction. No acute valvular abnormalities. Cytology from the urine is pending. His stool Hemoccult demonstrated no evidence of blood in the stool. ASSESSMENT: 1. Interstitial lung disease. 2. Significant weight loss. 3. Hematuria. 4. Acute renal insufficiency. 5. Tobacco abuse. RECOMMENDATIONS: 1. I would check a chest CT to better define his pulmonary pathology. I would agree that TB needs t o be considered, but I would also consider other interstitial lung disease such as rheumatoid arthrit is. The hematuria would make one also to consider Sabra's granulomatosis and Goodpasture syndrome, especially in the setting of renal insufficiency like this gentleman has. 2. The steroids put him at risk for odd things in his lungs such as tuberculosis, nocardia, actinomy cosis, etc. 3. Await results of sputum testing and QuantiFERON testing. 4. I will be happy to follow with you.
[2018-01-16 05:49] LABS: #Eosinphils 0.1 thou/uL (0.0-0.7); #Lymphocytes 1.2 thou/uL (1.20-3.40); #Monocytes 0.4 thou/uL (0.11-0.59); #Neutrophils 5.4 thou/uL (1.40-6.50); %Basophils 0.7 % (0.0-1.0); %Eosinophils 2.1 % (0.0-10.0); %Lymphocytes 16.5 % (21.0-51.0); %Monocytes 5.8 % (0.0-10.0); Hemoglobin 7.7 g/dL (14.0-18.0); Mean Corpuscular Hemoglobin 28.3 pg (27.0-31.0); Mean Corpuscular Volume 88.5 fL (78.0-98.0); Mean Platelet Volume 7.8 fL (7.4-10.4); Platelet Count 214 thou/uL (130-400); RBC Distribution Width 12.7 % (11.5-14.5); Red Blood Cell (RBC) Count 2.71 mill/uL (4.70-6.10); White Blood Cell (WBC) Count 7.1 thou/uL (4.8-10.8)
--- NOTE | 2018-01-16 06:07 | PDOC.FM ---
- Subjective Subjective: No overnight events. Denies Pain, SOB. Reports cough has improved. No questions or concerns. His daughter in law works at [employer] and is involved in his care. She is able to leave work to come over if needs arise. - Objective MAR Reviewed: Yes Vital Signs & Weight: Vital Signs (12 hours) Temp Pulse Resp BP BP Pulse Ox 01/16/18 04:00 97.9 F 65 18 141/78 H 94 L 01/16/18 00:00 97.9 F 68 16 146/69 H 95 01/15/18 23:05 97 01/15/18 20:00 98 F 70 16 136/68 95 Weight Weight 115 g I&O: 01/14/18 01/15/18 01/16/18 06:59 06:59 06:59 Intake Total 481 1551 600 Output Total 1300 370 Balance -819 1181 600 Result Diagrams: 01/16/18 03:47 01/16/18 03:47 Phys Exam - Physical Examination Constitutional: NAD Neck: supple Respiratory: wheezing present Cardiovascular: RRR, no significant murmur Gastrointestinal: soft, non-tender, positive bowel sounds Musculoskeletal: no edema Psychiatric: normal affect, A&O x 3 Deviation from normal: unable to recall events from yesterday. Skin: cap refill <2 seconds Dx/Plan (1) Anemia of chronic disease Code(s): D63.8 - ANEMIA IN OTHER CHRONIC DISEASES CLASSIFIED ELSEWHERE Status : Acute (2) COPD (chronic obstructive pulmonary disease) Status: Acute (3) Rheumatoid arteritis Code(s): I00 - RHEUMATIC FEVER WITHOUT HEART INVOLVEMENT Status: Acute (4) Cough Code(s): R05 - COUGH Status: Acute (5) Elevated brain natriuretic peptide (BNP) level Code(s): R79.89 - OTHER SPECIFIED ABNORMAL FINDINGS OF BLOOD CHEMISTRY Status : Acute (6) Hematuria Code(s): R31.9 - HEMATURIA, UNSPECIFIED Status: Acute (7) Hyperkalemia Code(s): E87.5 - HYPERKALEMIA Status: Acute (8) Kidney disease Code(s): N28.9 - DISORDER OF KIDNEY AND URETER, UNSPECIFIED Status: Acute (9) Tobacco abuse Code(s): Z72.0 - TOBACCO USE Status: Acute - Plan Plan: 72 yo M presenting with b/l leg swelling with possible new onset CHF, and getting work up for other cough, hematuria. Cough TB vs Malignancy vs Sabra's vs Goodpastures vs Other Interstitial lung disease vs Infection: Nocardia, actinomycosis - No respiratory distress or supplemental O2 requirements - Recent unexpected wt loss - Considering weight loss, cough, recent move from [place], TB considered. Quant gold pending. - CXR: hyperinflation c/w COPD. diffuse, mild nodular interstitial densities L> R. - CT 11/15: Extensive opacities throughout lung parenchyma, nonspecific nodular appearance. Irregular marginated mass (2.1 x 1.5cm) in Rigth lower lobe worrisome fo rmalignancy until proven otherwise. Dedicated post contrast CT recommended. Narrowing of right central mainstem bronchus. Small b/l pleural effusion. B/l apical pleural thickening with focal masslike opacity in left upper lobe (1.6 x 1.4cm) - Tessalon prn - DAVIS-ANCA, Glomerular basement membrane Ab, INVIA screen w/ reflex pending - Pulmonology consulted, apprec recs - Dr Mean plans to do bronchoscopy once labs and quant gold result - PPD today Elevated Creatinine - No reported hx of kidney disease - Likely chronic - US: smaller than nml kidney size - Nephrology consulted, appreciate recommendations - Holding diuresis, edema improved - Will need to follow up with PCP outpt Hematuria - Kidney vs prostate source vs Goodpasture - Nephrology consulted, apprec recs - Pulm consulted, apprec recs Elevated BNP - BNP 1700 in outpatient setting, 368 in ED - Echo: 60-65% nml diastolic dysfunction - Cardiology consulted, appreciate recs - s/p Lasix IV 20. SOB and edema improved. - Strict I&Os, daily wts - Repeat CXR with worsening interstitial infiltrates - ABG with nml pO2 Atypical Chest Pain - Trops neg x3 - EKG with no ST segment changes - Cardiology Consulted, apprec recs - Daily ASA RA - Stopped taking a week ago when moved from [place] - Continue Prednisone 5mg qd - Will order anti citrullinated antibody to evaluate if pt truly has RA, clinically it does not appear he does, pt would benefit from discontinuing senior care steroids if this is the case Anemia of Chronic Disease - Iron studies c/w Anemia of Chronic disease - 2/2 CKD vs RA - Hgb 8.4-> 7.8 - FOBT neg - Smear: normocytic anemia Hyperkalemia, resolved - 5.3 on admission, Kayexalate given - Continue to monitor daily BMP Tobacco abuse - COPD as possible cause for cough/SOB - Encourage cessation Code Status: FULL DVT ppx: Lovenox
[2018-01-16 06:22] LABS: Anion Gap 10 mmol/L (10-20); BUN (Urea Nitrogen) 41 mg/dL (8.4-25.7); Calc. Creatinine Clearance 0 mL/min (70-130); Calcium 8.5 mg/dL (7.8-10.44); Carbon Dioxide 24 mmol/L (23-31); Chloride 110 mmol/L (98-107); Estimated GFR-MDRD 29; Glucose 79 mg/dL (83-110); Potassium 4.2 mmol/L (3.5-5.1); Sodium 140 mmol/L (136-145)
[2018-01-16] MEDS ORDERED: Tuberculin PPD 0.1 ML VIAL I-DERMAL SCH ×2 (08:45)
--- NOTE | 2018-01-16 08:48 | PRG ---
DATE OF SERVICE: 01/16/2018 The patient is feeling well, has no complaints. PHYSICAL EXAMINATION: VITAL SIGNS: Temperature 98.4, pulse 69, respirations 18, O2 93%, blood pressure 120/72. HEENT: Unremarkable. NECK: No JVD. LUNGS: Clear anteriorly. CARDIOVASCULAR: S1, S2 regular. ABDOMEN: Soft. EXTREMITIES: No edema. LABORATORY DATA: White blood cell count 7.1, hematocrit 22.9, platelet count 214. Sodium 140, potas sium 4.2, chloride 110, CO2 24, BUN 41, creatinine 2.2, glucose 79. I reviewed his CT in detail. He has some nodular changes in the right and left upper lobes. The rig ht upper lobe lesion measures 2.1 x 1.5 an the left upper lobe lesion measures 1.6 x 1.4. He also escobar s a pleural based density in the right lower lobe. There are some fine interstitial changes in the a pices, the bases look relatively clear. Overall, this does not look like a picture consistent with i diopathic pulmonary fibrosis, but could very well be secondary to rheumatoid arthritis, TB, or Wegene r's granulomatosis. RECOMMENDATION: 1. Since TB is still in the differential I would recommend getting the AFB stains and QuantiFERON te st back before proceeding with any kind of bronchoscopic procedure. 2. Need results of C-ANCA, antiglomerular basement membrane antibody to rule out Sabra's granuloma tosis and Goodpasture's syndrome, respectively. 3. I would go ahead and place a PPD since that has not been done. 4. Again, no bronchoscopic evaluation will be done until TB has been ruled out otherwise.
[2018-01-16] MEDS: predniSONE 5 MG TAB PO SCH (08:52)
[2018-01-16] MEDS: Ferrous Gluconate 324 MG TAB PO SCH (08:53)
[2018-01-16] MEDS: Enoxaparin Sodium 30 MG/0.3 ML SYRINGE SC SCH (08:53)
[2018-01-16] MEDS: Folic Acid 1 MG TAB PO SCH (08:53)
[2018-01-16 09:34] LABS: HIV (1/2) Antibody/Antigen Non-Reactive (NonReactive); HIV 1/2 INDEX 0.27 S/CO (<1.00)
--- NOTE | 2018-01-16 12:58 | PRG ---
DATE OF SERVICE: 01/16/2018 Mr. Pike underwent a chest CT yesterday based on a very abnormal appearing chest x-ray. It did s how significant abnormalities and Dr. Myles Mena has been consulted. He has ordered several test to rule out other causes of interstitial lung disease. He will likely proceed with bronchoscopy when some of these results are returned. Clinically, Mr. Pike is resting quietly in bed. He is in n o distress. He is not short of breath. He is not having chest pain. He is not coughing. He remain s afebrile. On closer inspection of his chest CT with impression as follows. There were extensive opacities thro ughout the lung parenchyma which were nonspecific and have a nodular appearance. There is an irregul ar marginated mass in the right lower lobe worrisome for malignancy. Dedicated post-contrast chest C T is recommended. Further studies and treatment will depend upon results of blood work that is pendi ng and possibly on bronchoscopy which will occur after blood work has been returned. We are still al so evaluating the patient for tuberculosis.
--- NOTE | 2018-01-16 20:47 | PRG ---
DATE OF SERVICE: 01/16/2018 SUBJECTIVE: Patient was seen and examined at bedside and overnight events noted. Patient denies any shortness of breath or chest pain or palpitation. No history of nausea or vomiting or diarrhea or f ever or chills or cramps. OBJECTIVE: GENRAL: This is a thin-built male in no apparent distress. VITAL SIGNS: Temperature 98.4, pulse 69, respiratory rate , blood pressure 138/72. HEENT: Atraumatic, normocephalic, Oral mucosa is moist. Neck: Supple. Cardiovascular: S1 and S2 heard. Rate and rhythm regular. Respiratory: Clear to auscultation. Gastrointestinal: Abdomen is soft. Musculoskeletal: No tenderness, No edema. Dermatologic: No skin rash. Neurologic: Alert and awake and oriented x3. No focal neurologic deficits. Moving all the extremit ies. Psychiatric: Mood and affect normal. LABORATORY DATA: Potassium is 4.2, BUN 41, creatinine is 2.2. ASSESSMENT AND PLAN: 1. Acute kidney injury on chronic kidney disease stage II versus chronic kidney stage IV. I agree w ith nephritic workup with NIVIA and ANCA given hematuria. We will monitor renal function is stable. C ontinue hydration as tolerated. Avoid nephrotoxins. 2. Hyperkalemia, better. 3. Metabolic acidosis. 4. Proteinuria. Recheck labs. 5. Edema, controlled. 6. We will await results of ANCA and anti-GBM. We will follow.
[2018-01-16 23:28] LABS: Bilirubin Negative (Negative); Blood, Urine Large (Negative); Clarity CLEAR (Clear); Glucose, Urine (Dipstick) Negative (Negative); Leukocyte Negative (Negative); Nitrite Negative (Negative); Protein, Urine (Dipstick) 100 mg/dL (Neg-Trace); Specific Gravity, Urine 1.012 (1.002-1.036); Urobilinogen 0.2 mg/dL (0.2-1.0)
[2018-01-16 23:30] LABS: Bacteria/HPF None Seen HPF (None Seen); Hyaline Casts/LPF 0-3 HYALINE CAST LPF (0-3 Hyaline); RBC/HPF GREATER THAN 50-TNTC HPF (0-3); Squamous Epithelial 0-3 HPF (0-3)
[2018-01-17 00:11] LABS: Creatinine, Urine 50.87 mg/dL (63-166)
[2018-01-17 05:38] LABS: Anion Gap 10 mmol/L (10-20); BUN (Urea Nitrogen) 40 mg/dL (8.4-25.7); Calc. Creatinine Clearance 0 mL/min (70-130); Calcium 8.6 mg/dL (7.8-10.44); Carbon Dioxide 23 mmol/L (23-31); Chloride 111 mmol/L (98-107); Estimated GFR-MDRD 31; Glucose 82 mg/dL (83-110); Potassium 4.2 mmol/L (3.5-5.1); Sodium 140 mmol/L (136-145)
[2018-01-17 05:43] LABS: #Eosinphils 0.2 thou/uL (0.0-0.7); #Lymphocytes 1.3 thou/uL (1.20-3.40); #Monocytes 0.4 thou/uL (0.11-0.59); #Neutrophils 5.3 thou/uL (1.40-6.50); %Basophils 0.2 % (0.0-1.0); %Eosinophils 2.3 % (0.0-10.0); %Lymphocytes 18.4 % (21.0-51.0); %Monocytes 5.8 % (0.0-10.0); %Neutrophils 73.4 % (42.0-75.0); Hemoglobin 7.5 g/dL (14.0-18.0); Mean Corpuscular HGB CONC 31.5 g/dL (32.0-36.0); Mean Corpuscular Hemoglobin 27.9 pg (27.0-31.0); Mean Corpuscular Volume 88.3 fL (78.0-98.0); Mean Platelet Volume 7.7 fL (7.4-10.4); Platelet Count 238 thou/uL (130-400); RBC Distribution Width 12.8 % (11.5-14.5); Red Blood Cell (RBC) Count 2.69 mill/uL (4.70-6.10); White Blood Cell (WBC) Count 7.2 thou/uL (4.8-10.8)
--- NOTE | 2018-01-17 06:25 | PDOC.FM ---
- Subjective Subjective: No overnight events. Denies cough, SOB. Reports pain in bilateral hands. No questions or concerns. - Objective MAR Reviewed: Yes Vital Signs & Weight: Vital Signs (12 hours) Temp Pulse Resp BP Pulse Ox 01/16/18 20:00 98.3 F 73 18 135/72 98 Weight Weight 115 g I&O: 01/15/18 01/16/18 01/17/18 06:59 06:59 06:59 Intake Total 1551 900 Output Total 370 Balance 1181 900 Result Diagrams: 01/17/18 04:39 01/17/18 04:39 Phys Exam - Physical Examination Constitutional: NAD Neck: supple Respiratory: no wheezing, clear to auscultation bilateral Cardiovascular: RRR, no significant murmur Gastrointestinal: soft, non-tender, positive bowel sounds Musculoskeletal: pulses present Neurological: moves all 4 limbs Psychiatric: normal affect, A&O x 3 Dx/Plan (1) Anemia of chronic disease Code(s): D63.8 - ANEMIA IN OTHER CHRONIC DISEASES CLASSIFIED ELSEWHERE Status : Acute (2) COPD (chronic obstructive pulmonary disease) Status: Acute (3) Rheumatoid arteritis Code(s): I00 - RHEUMATIC FEVER WITHOUT HEART INVOLVEMENT Status: Acute (4) Cough Code(s): R05 - COUGH Status: Acute (5) Elevated brain natriuretic peptide (BNP) level Code(s): R79.89 - OTHER SPECIFIED ABNORMAL FINDINGS OF BLOOD CHEMISTRY Status : Acute (6) Hematuria Code(s): R31.9 - HEMATURIA, UNSPECIFIED Status: Acute (7) Hyperkalemia Code(s): E87.5 - HYPERKALEMIA Status: Acute (8) Kidney disease Code(s): N28.9 - DISORDER OF KIDNEY AND URETER, UNSPECIFIED Status: Acute (9) Tobacco abuse Code(s): Z72.0 - TOBACCO USE Status: Acute - Plan Plan: 72 yo M presenting with b/l leg swelling with possible new onset CHF, and getting work up for other cough, hematuria. Cough TB vs Malignancy vs Sabra's vs Goodpastures vs Other Interstitial lung disease vs Infection: Nocardia, actinomycosis - No respiratory distress or supplemental O2 requirements - Recent unexpected wt loss - Considering weight loss, cough, recent move from [place], TB considered. Quant gold pending. - CXR: hyperinflation c/w COPD. diffuse, mild nodular interstitial densities L> R. - CT 11/15: Extensive opacities throughout lung parenchyma, nonspecific nodular appearance. Irregular marginated mass (2.1 x 1.5cm) in Rigth lower lobe worrisome fo rmalignancy until proven otherwise. Dedicated post contrast CT recommended. Narrowing of right central mainstem bronchus. Small b/l pleural effusion. B/l apical pleural thickening with focal masslike opacity in left upper lobe (1.6 x 1.4cm) - Tessalon prn - DAVIS-ANCA, Glomerular basement membrane Ab, NIVIA screen w/ reflex, Anti-CCP pending - HIV neg - Pulmonology consulted, apprec recs, if quant gold is neg will plan for further workup outpatient - PPD @ 1451 01/16 Elevated Creatinine - No reported hx of kidney disease - TOYIN on CKDII or CKD IV - US: smaller than nml kidney size - Nephrology consulted, appreciate recommendations Hematuria - Kidney vs prostate source vs Goodpasture - Nephrology & Pulm following apprec recs Elevated BNP - BNP 1700 in outpatient setting, 368 in ED - Echo: 60-65% nml diastolic dysfunction - Cardiology consulted, appreciate recs - s/p Lasix IV 20. SOB and edema improved. - Strict I&Os, daily wts - ABG with nml pO2 Atypical Chest Pain - Trops neg x3 - EKG with no ST segment changes - Cardiology Consulted, apprec recs - Daily ASA RA - Stopped taking a week ago when moved from [place] - Continue Prednisone 5mg qd - Anti citrullinated Ab pending to evaluate if pt truly has RA, clinically it does not appear he does, pt would benefit from discontinuing fpc steroids if this is the case Anemia of Chronic Disease - Iron studies c/w Anemia of Chronic disease - 2/2 CKD vs RA - Hgb 8.4-> 7.8 - FOBT neg - Smear: normocytic anemia Hyperkalemia, resolved - 5.3 on admission, Kayexalate given - Continue to monitor daily BMP Tobacco abuse - COPD as possible cause for cough/SOB - Encourage cessation Code Status: FULL DVT ppx: Lovenox
[2018-01-17] MEDS ORDERED: Sodium Chloride 3% (15 ML) NEB NEB PRN (07:18)
--- NOTE | 2018-01-17 08:05 | PRG ---
DATE OF SERVICE: 01/17/2018 The patient is doing well without complaints this morning. He wants to go home. PHYSICAL EXAMINATION: VITAL SIGNS: Temperature 97.9, pulse 80, respirations 22, O2 sat 96%, blood pressure 147/75. HEENT: Unremarkable. NECK: Without adenopathy, JVD, or bruits. LUNGS: Clear without wheezing or rhonchi. CARDIAC: S1, S2 regular, without murmur. ABDOMEN: Soft, nontender. EXTREMITIES: His right arm has a PPD that has been placed, so far it is nonreactive. LABORATORY DATA: Sodium 140, potassium 4.2, chloride 111, CO2 23, BUN 40, creatinine 2.1, glucose 82 . White blood cell count 7.2, hemoglobin 7.5, hematocrit 23.8, platelet count 238. His HIV test was not reactive. Repeat urinalysis yesterday continues to show significant hematuria. ASSESSMENT: Basically, we have a gentleman with bilateral apical nodular lesions which really do not have the appearance of either cancer or TB on the scan in my opinion. Additionally, he has hematuri a which has been seen on multiple urinalyses. He has significant renal dysfunction and he has a rath er profound normocytic anemia. Overall, this picture would point to some type of chronic process. Assuming his QuantiFERON test com es back negative and his PPD is negative, I think he can be discharged to home for further workup as an outpatient. It is likely that testing for Sabra's and Goodpasture's may take a while to come ba - I have typically seen results take a week to week and a half. There is probably not going to be much role for bronchoscopy in this case. If his ANCA titer is elevated or his anti-glomerular base membrane antibody titer is are elevated, then he would need a kidney biopsy for definitive diagnosis of either. The hematuria is of concern and if not felt due to intrinsic renal disease, this would require furthe r workup from Urology. In summation if the PPD and the QuantiFERON are negative, then further workup can take place as an ou tpatient. I would also recommend further evaluation of the patient's anemia.
[2018-01-17] MEDS: predniSONE 5 MG TAB PO SCH (09:43)
[2018-01-17] MEDS: Ferrous Gluconate 324 MG TAB PO SCH (09:43)
[2018-01-17] MEDS: Folic Acid 1 MG TAB PO SCH (09:43)
[2018-01-17] MEDS: Enoxaparin Sodium 30 MG/0.3 ML SYRINGE SC SCH (09:43)
--- NOTE | 2018-01-17 12:00 | PRG ---
DATE OF SERVICE: 01/17/2018 This is an addendum to the note of Dr. Blaire Mahmood. Mr. Pike continues to look and feel well. He is anxious to go home. We are awaiting many labs t o return, but in the meantime, he will be discharged for close followup.
[2018-01-17 15:08] LABS: ANA Symphony (Qualitative) Negative (Negative); EliA Vaculitis New Method **** NEW METHOD ****; Glomerular Basemt Membrane Ab Less than 1.9 EliAU/mL (<7 Negative); dsDNA IgG Antibody 1.1 IU/mL (<10 Negative)
[2018-01-17 16:21] LABS: CCP IgG Antibody Greater than 340.0 EliAU/mL (<7 Negative); EliA RAS New Method **** NEW METHOD ****
--- NOTE | 2018-01-17 16:22 | PDOC.EVN ---
Event Note - Event Note Event Note: S: Patient strongly desires to go home. Asymptomatic. Discussed with Sang Rivera, Elbert and patent's [id number], [place] and all are ok with dc with close f/u for PPD read tomorrow and f/u in nephro/pulm clinic. Patient is very grateful to go home and has no questions at this time. O: VSS Gen: awake, alert HEENT: atraumatic, normocephalic, poor dentition CV: RRR RESP: breathing nonlabored ABD: nondistended A/P: Plan for d/c with f/u for PPD read at 3pm tomorrow at our clinic. Discussed with [id number] who will ensure he comes for f/u. Also will f/u quant gold and gave info for f/u with Sang [place] and [facility] for ongoing OP work-up.
[2018-01-17 17:43] VITALS: BP 146/76; TEMP 98.4
--- NOTE | 2018-01-17 18:00 | PRG ---
DATE OF SERVICE: 01/17/2018 SUBJECTIVE: Patient was seen and examined at bedside and overnight events noted. Patient denies any shortness of breath or chest pain or palpitation. No history of nausea or vomitin g or diarrhea or fever or chills or cramps. OBJECTIVE: GENERAL: This is a well-built male, in no apparent distress. VITAL SIGNS: Temperature 97.9, pulse 70, respiratory rate 22, blood pressure 147/75. HEENT: Atraumatic, normocephalic. Oral mucosa is moist. NECK: Supple. CARDIOVASCULAR: S1 and S2 heard. Rate and rhythm regular. RESPIRATORY: Clear to auscultation. GASTROINTESTINAL: Abdomen is soft. MUSCULOSKELETAL: No tenderness. No edema. DERMATOLOGIC: No skin rash. NEUROLOGIC: Alert and awake and oriented x3. No focal neurologic deficits. Moving all the extremit ies. PSYCHIATRIC: Mood and affect normal. LABORATORY DATA: Potassium 4.2, BUN 40, creatinine is 2.1. ASSESSMENT AND PLAN: 1. Acute kidney injury on chronic kidney disease stage 3. Renal function with slight improvement. Avoid nephrotoxins. Okay to discharge. Follow with Dr. Bourgeois in 2-3 weeks. NIVIA and ANCA pendi ng. 2. Hematuria. 3. Metabolic acidosis. 4. Proteinuria. 5. Edema, controlled. 6. Follow with Dr. Bourgeois in 1-2 weeks.
--- NOTE | 2018-01-18 02:46 | DIS-2 ---
DATE OF ADMISSION: 01/13/2018 DATE OF DISCHARGE: 01/17/2018 RESIDENT: Camryn Mahmood, PGY1. ADMITTING ATTENDING: Jocelyne Brewer M.D. DISCHARGE ATTENDING: Luc Boswell M.D. CONSULTATIONS: 1. Pulmonology, Dr. Mena. 2. Nephrology. PROCEDURES: 1. Chest x-ray: Emphysema, nonspecific diffuse nodule interstitial densities. 2. Renal ultrasound, no evidence of high grade obstruction 9 cm in length and left kidney 8 cm in length. Right kidney was benign. 3. Echocardiogram: EF 60-65%, mild tricuspid and mitral regurgitation. 4. Chest x-ray interval worsening since yesterday. 5. Chest CT with extensive calcification in mediastinum and hilum due to granulomatous disease. There is evidence of hypodense oval opacities involving the left and right upper lobe near the respective major fissures. There is consolidation of the right superior suprahilar region. There is narrowing of the right main stem bronchus and central right airway. There are diffuse nodules throughout the lung parenchyma. No evidence of honeycombing. Nonspecific septal thickening. Small bilateral pleural effusion. Irregular marginated mass of right lower lobe, incompletely evaluated measuring 2.1 x 1.5 cm. Questionable enlarged gastrohepatic lymph node measuring 2 x 1.5 cm. There is evidence of bilateral apical pleural thickening with more focal mass- like opacity in the left upper lobe measuring 1.6 x 1.4 cm. PRIMARY DIAGNOSIS: Cough and CT findings secondary to unknown cause. Differential includes TB versus malignancy versus Sabra's versus Goodpasture' s versus other interstitial lung disease versus infection. SECONDARY DIAGNOSES: 1. Elevated creatinine. 2. Hematuria. 3. Elevated BNP. 4. Atypical chest pain, resolved. 5. Rheumatoid arthritis. 6. Anemia of chronic disease. 7. Hyperkalemia, resolved. 8. Tobacco abuse. DISCHARGE MEDICATIONS: 1. Ferrous gluconate 324 mg q.a.m. 2. Folic acid 5 mg daily. 3. Prednisone 5 mg daily. DISCONTINUED MEDICATIONS: None. HISTORY OF PRESENT ILLNESS AND HOSPITAL COURSE: Mr. Shahzad Galarza is a 72- year-old [place]i speaking male admitted for bilateral leg swelling that was concerning for a new diagnosis of CHF. Ultimately, his echo was normal, but his chest x-ray findings and CT were concerning for multiple diseases including TB versus malignancy versus an autoimmune or vasculitis versus other types of infection. Pulmonology was consulted. During this time, he required no supplemental oxygen and only complaint was a cough. He does live in [place] and has traveled to the [place] for just a few months to visit family. He endorses a 10 kg weight loss over the last several months. Quant gold and a PT. The skin tests were performed and results are pending. Pulmonology ordered ANCA, glomerular basement membrane antibodies, NIVIA screen with reflex, and anti-CCP. These labs are still pending. HIV was negative. Pulmonology recommends further workup outpatient. He was noted to have an elevated creatinine of 2.56 at admission. This did come down to 2.13 discharge. Nephrology was consulted. He thinks they believe this is likely TOYIN on chronic kidney disease stage 2 versus chronic kidney disease stage 4. There was an ultrasound performed of his kidneys that showed smaller than normal kidney size. This is likely a chronic issue. This will need to be followed by his PCP outpatient. He was noted to have hematuria on exam. Her UA testing that was worse upon repeat UA. This will be followed up with Pulmonology to rule out Goodpasture's as a cause of his lung findings. Presenting complaint was atypical chest pain. The strips were negative x3. His EKG showed no ST segment changes, Cardiology was consulted who felt he was stable from a cardiovascular standpoint. He was continued on daily aspirin. Patient reports a history of RA that he takes prednisone daily for. He reports that most of his symptoms are in his feet and he has not been taking his prednisone for the last week. We obtained an anti-CCP antibody to evaluate if patient truly does have RA, clinically he does not appear to have destructive findings as a long history of RA. He would benefit from discontinuing long- term steroids as if his anti-CCP comes back negative for RA. He was worked up for anemia and his iron studies were consistent with anemia of chronic disease secondary to his chronic kidney disease versus RA versus other chronic process of being worked up for his lungs. Hemoglobin at admission was 8.4; at discharge , it was 7.8. FOBT was negative and a smear showed normocytic anemia. His hyperkalemia resolved. It was initially 5.3 on admission. They gave Kayexalate and it was monitored with daily BMPs. DISPOSITION: Stable. DISCHARGE INSTRUCTIONS: 1. Location: Home. 2. Diet: Renal. 3. Activity: No restrictions. 4. Follow up on 01/18 after 3:00 at [facility] for PPD evaluation. Follow up with [facility] clinic for chronic medical conditions. Follow up with Dr. Mena, Pulmonology for further workup. CEZAR
[2018-01-18] MEDS ORDERED: READ PPD TEST SITE PO SCH (09:00)
[2018-01-18 15:33] LABS: Cytoplasmic (C-ANCA) <1:20 titer (Neg:<1:20); Myeloperoxidase AutoAbs <9.0 U/mL (0.0-9.0); Proteinase-3 AutoAbs Less than 3.5 U/mL (0.0-3.5)
== END 2018-01-17 17:44 | disposition home or self-care (01) | DRG 204 ==
LOC: ERS 15:39 → OBSVTOIN 19:59 → 2SW 19:59 → 2NO 01-14 10:04 → 2SE 01-14 15:57 → T4-A 01-15 23:44
PROVIDERS: ADMIT Family Medicine; ATTEND Family Medicine
DX: R05 Cough (principal); N17.9 Acute kidney failure, unspecified; E87.2 Acidosis; F17.210 Nicotine dependence, cigarettes, uncomplicated; M19.90 Unspecified osteoarthritis, unspecified site; N40.0 Benign prostatic hyperplasia without lower urinary tract symptoms; E11.22 Type 2 diabetes mellitus with diabetic chronic kidney disease; E87.5 Hyperkalemia; R31.9 Hematuria, unspecified; D63.1 Anemia in chronic kidney disease; J44.9 Chronic obstructive pulmonary disease, unspecified; M06.9 Rheumatoid arthritis, unspecified; N18.3 Chronic kidney disease, stage 3 (moderate); R07.89 Other chest pain; I12.9 Hypertensive chronic kidney disease with stage 1 through stage 4 chronic kidney disease, or unspecified chronic kidney disease; I08.1 Rheumatic disorders of both mitral and tricuspid valves
CPT/HCPCS: 36415; 71045; 71046; 71250; 76770; 80048; 80053; 81003; 81015; 82274; 82553; 82570; 82728; 82805; 83516; 83520; 83540; 83550; 83735; 83880; 84156; 84300; 84484; 85025; 85060; 86038; 86200; 86225; 86256; 86480; 86580; 87389; 88112; 90471; 90670; 93005; 93306; 96374; A4216; G0009; J1650; J1940; J2270; J7070